=== PATIENT | female | born 1995 | race Caucasian/White ===

== ENCOUNTER 2020-06-13 05:12 | Inpatient (IN) | payer BC ==
[2020-06-13] VITALS (7 sets, daily range): BP systolic 87–108; BP diastolic 45–71
[~2020-06-13] VITALS: Ht 162.6 cm; Wt 63.5 kg
--- NOTE | ~2020-06-13 | O ---
[facility] [place] [address] OPERATIVE REPORT Name: DON CAMARGO Room #: 442-P ADM IN M.R.#: [id number] Admission: 06/13/20 Attend Phys: Corey Leon, Discharge: Date of : 89 Report #: [id number] THIS REPORT FOR: cc: [facility] - Clinic physician unknown [facility] - Clinic physician unknown Corey Leon MD ~ DATE OF SERVICE: 06/13/2020 PREOPERATIVE DIAGNOSIS: Acute appendicitis. POSTOPERATIVE DIAGNOSIS: Acute appendicitis. OPERATION: Laparoscopic appendectomy. SURGEON: Corey Leon MD ANESTHESIA: General. ESTIMATED BLOOD LOSS: Minimal. SPECIMEN: Appendix. DESCRIPTION OF PROCEDURE: After informed consent was obtained, the patient was brought to the operating room and placed supine. SCDs were placed and working, preoperative antibiotics were administered, general anesthesia was induced. The abdomen was prepped and draped in the usual sterile fashion. A 10 mm incision was made below the umbilicus. Fascia was incised and a trocar was placed. Pneumoperitoneum was established. A right upper quadrant and left lower quadrant 5 mm port was placed under direct vision. The appendix was then grasped and retracted anteriorly. It was inflamed and edematous consistent with appendicitis. A window was made in the mesoappendix. The mesoappendix was ligated with a PAYAM meadows load stapler. The base of the appendix was then stapled off with a PAYAM blue load stapler. Appendix was then placed into an Endopouch and removed. The fascia was then closed with a [id number] 0 Vicryl. Skin was closed with 4-0 Monocryl. Incisions were dressed with Steri-Strips. COMPLICATIONS: None. DISPOSITION: The patient was taken to recovery in satisfactory condition. By: [id number] Corey Leon MD /nt
[~2020-06-13 05:12] MED LIST: ALLEGRA60 MG PO; CLEOCIN HCL150 MG PO; FELDENE20 MG PO; MEBENDAZOLE100 MG PO; MICROGESTIN FE1 EACH PO; NEXIUM40 MG PO; NORCO 5-325 TA1 EACH PO; SINGULAIR 10 MG10 M1 PO; ZOFRAN ODT4 MG PO; ZOLOFT 50 MG TA50 M1
[2020-06-13] MEDS ORDERED: LINZESS145 MCG PO (05:29)
[2020-06-13] MEDS ORDERED: ADDERALL 10 MG10 MG PO (05:29)
[2020-06-13 05:37] LABS: URINE BILIRUBIN NEGATIVE (Negative); URINE BLOOD NEGATIVE (Negative); URINE CLARITY CLEAR; URINE COLOR YELLOW; URINE GLUCOSE-RANDOM* NEGATIVE (Negative); URINE KETONES NEGATIVE (Negative); URINE LEUKOCYTES-REFLEX NEGATIVE (Negative); URINE NITRITE-REFLEX NEGATIVE (Negative); URINE PROTEIN (DIPSTICK) NEGATIVE (Negative)
[2020-06-13 05:48] LABS: BASOPHILS 0.3 % (0.0-2.0); EOSINOPHILS 0.2 % (0.0-3.0); HEMATOCRIT 38.5 % (37.0-47.0); HEMOGLOBIN 12.7 gm/dL (12.0-15.0); LYMPHOCYTES 3.4 % (24.0-44.0); MCH 31.8 pg (26.0-34.0); MCHC 32.9 g/dL (28.0-37.0); MCV 96.6 fL (80.0-100.0); PLATELET COUNT 183 thou/uL (150-400); POLYS 91.1 % (36.0-66.0); RBC 3.99 mil/uL (4.20-5.00); WBC 15.4 thou/uL (4.0-11.0)
[2020-06-13 05:52] LABS: CALCIUM 9.1 mg/dL (8.5-10.1); CREATININE 0.8 mg/dL (0.6-1.0); POTASSIUM 3.9 mmol/L (3.5-5.1)
[2020-06-13 05:59] LABS: ALBUMIN 4.1 g/dL (3.4-5.0); TOTAL BILIRUBIN 1.2 mg/dL (0.2-1.0); TOTAL PROTEIN 7.3 g/dL (6.4-8.2)
--- NOTE | 2020-06-13 19:56 | NUR ---
A/O, calm and pleasant. complains of pain in abdomen, pain medication given and worked, no n/v. tolerated NPO.
--- NOTE | 2020-06-14 05:04 | NUR ---
PT ARRIVED TO UNIT FROM PROCEDURE SHORTLY AFTER 1900. MINIMAL BLOODY DRAINAGE NOTED TO EXCEED PAST STERI STRIPS TO NAVEL, OTHER X2 LAP SITES INTACT, NO DRAINAGE NOTED. REINFORCED STERI STRIPS TO NAVEL WITH GAUZE, ABD, AND TAPE. PT AOX4. PT REPORTS ABDOMINAL PRESSURE LIKE PAIN. PT RECEIVING PRN IV MORPHINE Q3HR AND PRN PO NORCO Q4HR. PT REPORTS SOME RELIEF WITH REPOSITIONING AND PILLOW TO ABDOMEN. PT REPORTS HAVING FLATUENCE WITH RELIEF AFTER REPOSITIONING AND PRN PO SIMETHICONE BID GIVEN. PT TOLERATING PO INTAKE OF FLUIDS AND REGULAR DIET WITHOUT ISSUE. PT WITHOUT NAUSEA OR EMESIS. PT RESTING IN BED THROUGHOUT SHIFT, FREQUENT REPOSITIONING ENCOURAGED, PT NOTED TO SHIFT INDEPENDENTLY WHILE IN BED. INITIALLY, PT AMBULATING WITH STANDBY ASSIST TO BEDSIDE COMMODE, OBSERVED WITH STEADY GAIT, AMBULATING INDPENDENTLY TO BATHROOM THEREAFTER. PT ENCORUAGED TO NOTIFY STAFF FOR ALL NEEDS, CALL LIGHT WITHIN REACH, BED LOCKED IN LOWEST POSITION, FREQUENT MONITORING WILL CONTINUE.
[2020-06-14] MEDS ORDERED: NORCO5 PO (07:17)
[2020-06-14 07:26] VITALS: BP 87/59
--- NOTE | 2020-06-14 17:38 | NUR ---
C/O, calm and cooperative. denied pain, no n/v.
== END 2020-06-14 08:05 | disposition home or self-care (01) | DRG 343 ==
LOC: ER 05:12 → EROBS 08:26 → 4S 08:52
PROVIDERS: Emergency Medicine; ADMIT Surgery; ATTEND Surgery
PROC: 0DTJ4ZZ Resection of Appendix, Percutaneous Endoscopic Approach (ICD-10-PCS; principal; 2020-06-13)
DX: K35.80 Unspecified acute appendicitis (principal); Z20.822 Contact with and (suspected) exposure to COVID-19; Z79.899 Other long term (current) drug therapy
CPT/HCPCS: 10195; 50101; 50411; 50445; 50555; 50739; 50740; 52265; 52266; 53307; 53312; 53314; 56462; 56525; 56526; 58574; 62110; 62900; 70005